=== PATIENT | male | born 1980 | race Caucasian/White ===

== ENCOUNTER 2017-02-04 22:29 | Emergency (ER) | payer SELFPAY ==
[2017-02-04 22:33] VITALS: RESP 20; TEMP 98.9
--- NOTE | 2017-02-04 22:48 | C.PDOC ---
History Of Present Illness Patient is a 36 y/o male who presents to the ED with complaints of right great toe pain, redness, and swelling since Wednesday. Patient notes subjective fever at home, but denies fever currently. Patient denies any trauma. No other physical complaints at this time. Time Seen by Provider: 02/04/17 22:48 Chief Complaint (Nursing): Abnormal Skin Integrity History Per: Patient History/Exam Limitations: no limitations Onset/Duration Of Symptoms: Days (since Wednesday) Current Symptoms Are (Timing): Still Present Quality Of Symptoms: Painful, Swollen, Other (redness ) Recent travel outside of the [place]: No Additional History Per: Patient Past Medical History Reviewed: Historical Data, Nursing Documentation, Vital Signs Vital Signs: Last Vital Signs Temp 98.9 F 02/04/17 22:31 Pulse 108 H 02/04/17 22:31 Resp 20 02/04/17 22:31 BP 151/85 H 02/04/17 22:31 Pulse Ox 97 02/05/17 00:00 - Medical History PMH: No Chronic Diseases Denies: Chronic Kidney Disease Surgical History: No Surg Hx Family History: States: No Known Family Hx - Social History Hx Alcohol Use: No Hx Substance Use: No - Immunization History Hx Tetanus Toxoid Vaccination: Yes Review Of Systems Constitutional: Positive for: Fever (subjective at home) Cardiovascular: Negative for: Chest Pain, Palpitations Respiratory: Negative for: Shortness of Breath Musculoskeletal: Positive for: Foot Pain (right great toe) Skin: Positive for: Other (swelling and redness to right great toe) Physical Exam - Physical Exam Appears: Well, Non-toxic, No Acute Distress Skin: Normal Color, Warm, Dry Head: Atraumatic Oral Mucosa: Moist Extremity: Tenderness (right great toe), Swelling (right great toe swollen and warm) Neurological/Psych: Oriented x3, Normal Speech, Normal Cognition, Other (no focal deficits) ED Course And Treatment - Laboratory Results Result Diagrams: 02/04/17 23:40 02/04/17 23:40 O2 Sat by Pulse Oximetry: 97 Pulse Ox Interpretation: Normal - Other Rad foot X-Ray: Interpreted by Me, Viewed By Me Interpretation: no fx, dilocation or foreign object Progress Note: Plan: blood work and right foot XR ordered; Ancef administered. Disposition Counseled Patient/Family Regarding: Studies Performed, Diagnosis, Need For Followup, Rx Given - Disposition Referrals: [facility] [Outside] Disposition: HOME/ ROUTINE Disposition Time: 22:48 Condition: FAIR Additional Instructions: Please make the appointment to the Podiatry clinic at [facility] Prescriptions: Amoxicillin/Clavulanate [Augmentin 875 MG-125 MG] 1 tab PO BID #14 tab Instructions: Cellulitis (DC) Forms: [employer] ([place]) - Clinical Impression Clinical Impression: Cellulitis and abscess of foot - Scribe Statement The provider has reviewed the documentation as recorded by the Scribpadma Wylie All medical record entries made by the Angelaibpadma were at my direction and personally dictated by me. I have reviewed the chart and agree that the record accurately reflects my personal performance of the history, physical exam, medical decision making, and the department course for this patient. I have also personally directed, reviewed, and agree with the discharge instructions and disposition.
[2017-02-04 23:43] LABS: BASO % 0.3 % (0.0-2.0); EOS # 0.1 K/uL (0.0-0.7); EOS % 1.2 % (0.0-4.0); HEMATOCRIT 45.6 % (35.0-51.0); LYMPH # 1.8 K/uL (1.0-4.3); LYMPH % 15.5 % (20.0-40.0); MEAN CELL VOLUME 89.3 fL (80.0-94.0); MEAN CORPUSCULAR HEMOGLOBIN 30.8 pg (27.0-31.0); MEAN CORPUSCULAR HGB CONC 34.5 g/dL (33.0-37.0); MEAN PLATELET VOLUME 9.6 fL (7.2-11.7); MONO # 0.9 K/uL (0.0-0.8); MONO % 7.8 % (0.0-10.0); RED CELL DISTRIBUTION WIDTH 13.6 % (11.5-14.5); WHITE BLOOD COUNT 11.4 K/uL (4.8-10.8)
[2017-02-04 23:50] LABS: CHLORIDE 101 mmol/L (98-107); POTASSIUM 3.5 mmol/L (3.6-5.2); SODIUM 136 mmol/L (132-148)
[2017-02-04 23:53] LABS: BLOOD UREA NITROGEN 17 mg/dL (9-20); CARBON DIOXIDE 23 mmol/L (22-30); GFR AFRICAN-AMERICAN > 60
[2017-02-04 23:54] LABS: CALCIUM 9.1 mg/dl (8.6-10.4); GLUCOSE,RANDOM 105 mg/dL (75-110)
[2017-02-05] LABS: VENOUS BLOOD GAS BASE EXCESS 1.2 mmol/L (0.0-2.0); VENOUS BLOOD GAS PCO2 50 mmHg (40-60); VENOUS BLOOD PH 7.35 (7.32-7.43)
[2017-02-05 00:23] VITALS: BP 150/80; PULSE 85; O2SAT 98
--- NOTE | 2017-02-05 09:32 | RAD ---
PROCEDURE: Right Foot Radiographs. HISTORY: att r great toe COMPARISON: None. FINDINGS: BONES: Normal. No fracture. JOINTS: Normal. SOFT TISSUES: Normal. OTHER FINDINGS: None. IMPRESSION: Normal right foot radiographs.
== END 2017-02-05 00:22 | disposition home or self-care (01) ==
LOC: C.ER 22:29
DX: L03.031 Cellulitis of right toe (principal); L02.611 Cutaneous abscess of right foot
CPT/HCPCS: 73620; 80048; 82803; 85025; 87040; 99283; J0690